=== PATIENT | female | born 1965 | race Caucasian/White ===

== ENCOUNTER 2018-01-06 10:35 | Emergency (ER) | payer OTHER ==
[2018-01-06 10:41] VITALS: BP 139/87
[2018-01-06] MEDS ORDERED: CLINDAMYCIN HCL 150 MG CAPSULE PO ONE (10:54)
--- NOTE | 2018-01-06 10:55 | ER Document Report ---
ED Skin Rash/Insect Bite/Abscs - General Chief Complaint: Insect Bite Stated Complaint: SPIDER BITE Time Seen by Provider: 01/06/18 10:42 Mode of Arrival: Ambulatory Information source: Patient Notes: Chief complaint: Insect bite History of complain:( obtained from----patient) 52 years old female presents today with an insect bite in the right hand 2 days ago noted some redness and swelling pain therefore present to the ED. No fever chills or other constitutional symptoms. The redness is extending. Onset: As above Duration: As above Severity: Mild to moderate Quality: Sharp Context: Insect bite possibly spider Exacerbating factor and relieving factors: Movement of the wrist REVIEW OF SYSTEMS: CONSTITUTIONAL : Denies fever, chills, or sweats. Denies recent illness. EENT: Denies eye, ear, throat, or mouth pain or symptoms. Denies nasal or sinus congestion or discharge. Denies throat, tongue, or mouth swelling or difficulty swallowing. CARDIOVASCULAR: Denies chest pain. Denies palpitations or racing or irregular heart beat. Denies ankle edema. RESPIRATORY: Denies cough, cold, or chest congestion. Denies shortness of breath, difficulty breathing, or wheezing. GASTROINTESTINAL: Denies distention. Denies nausea, vomiting, or diarrhea. Denies blood in vomitus, stools, or per rectum. Denies black, tarry stools. Denies constipation. GENITOURINARY: Denies difficulty urinating, painful urination, burning, frequency, blood in urine, or discharge. FEMALE GENITOURINARY: Denies vaginal bleeding, heavy or abnormal periods, irregular periods. Denies vaginal discharge or odor. MUSCULOSKELETAL: Denies back or neck pain or stiffness. Denies joint pain or swelling. SKIN: Denies rash, lesions or sores. HEMATOLOGIC : Denies easy bruising or bleeding. LYMPHATIC: Denies swollen, enlarged glands. NEUROLOGICAL: Denies confusion or altered mental status. Denies passing out or loss of consciousness. Denies dizziness or lightheadedness. Denies headache. Denies weakness or paralysis or loss of use of either side. Denies problems with gait or speech. Denies sensory loss, numbness, or tingling. Denies seizures. PSYCHIATRIC: Denies anxiety or stress. Denies depression, suicidal ideation, or homicidal ideation. ALL OTHER SYSTEMS REVIEWED AND NEGATIVE. PHYSICAL EXAMINATION: GENERAL: Well-appearing, well-nourished and in no acute distress. HEAD: Atraumatic, normocephalic. EYES: Pupils equal round and reactive to light, extraocular movements intact, conjunctiva are normal. ENT: Nares patent, oropharynx clear without exudates. Moist mucous membranes. NECK: Normal range of motion, supple without lymphadenopathy LUNGS: Breath sounds clear to auscultation bilaterally and equal. No wheezes rales or rhonchi. HEART: Regular rate and rhythm without murmurs ABDOMEN: Soft, nontender, nondistended abdomen. No guarding, no rebound. No masses appreciated. Examination of genitals-deferred Musculoskeletal: Normal range of motion, no pitting or edema. No cyanosis. NEUROLOGICAL: Cranial nerves grossly intact. Normal speech, normal gait. Normal sensory, motor exams PSYCH: Normal mood, normal affect. SKIN: Skin over the right hand at the middle of the extensor surface papule was noted which is yellow in discoloration. Surrounded by erythema which is tender. No significant swelling noted. Dictation was performed using [employer] voice recognition software TRAVEL OUTSIDE OF THE [place] IN LAST 30 DAYS: No - HPI Notes: Dictated - Related Data Allergies/Adverse Reactions: Penicillins Allergy (Verified 01/06/18 10:36) Past Medical History - Social History Smoking Status: Never Smoker Chew tobacco use (# tins/day): No Frequency of alcohol use: Occasional Drug Abuse: None Lives with: Family Family History: Reviewed & Not Pertinent Patient has suicidal ideation: No Patient has homicidal ideation: No - Past Medical History Cardiac Medical History: Reports: Hx Hypertension Renal/ Medical History: Denies: Hx Peritoneal Dialysis Review of Systems - Review of Systems Notes: Dictated Physical Exam - Vital signs Vitals: Temp Pulse Resp BP Pulse Ox 98.1 F 118 H 16 139/87 H 100 01/06/18 10:40 01/06/18 10:40 01/06/18 10:40 01/06/18 10:40 01/06/18 10:40 - Notes Notes: Dictated Course - Re-evaluation Re-evalutation: 01/06/18 10:52 The posterior was disrupted and culture obtained 01/06/18 10:52 Given antibiotic - Vital Signs Vital signs: Temp Pulse Resp BP Pulse Ox 98.1 F 118 H 16 139/87 H 100 01/06/18 10:40 01/06/18 10:40 01/06/18 10:40 01/06/18 10:40 01/06/18 10:40 Discharge - Discharge Clinical Impression: Cellulitis and abscess of hand Insect bite Qualifiers: Encounter type: initial encounter Site of insect bite: hand Laterality: right Qualified Code(s): S60.561A - Insect bite (nonvenomous) of right hand, initial encounter; W57.XXXA - Bitten or stung by nonvenomous insect and other nonvenomous arthropods, initial encounter; W57.XXXA - Bitten or stung by nonvenomous insect and other nonvenomous arthropods, initial encounter Condition: Fair Disposition: HOME, SELF-CARE Instructions: Abscess ([facility]) Additional Instructions: Insect Bites You have been bitten by an insect. These bites can cause two types of swelling: an initial swelling due to insect saliva or injected poison, and a late reaction due to your body's allergic reaction. This initial local reaction may be uncomfortable but is not dangerous. Often there's an itchy "hive" at the bite location. This is treated with antihistamines, cold compresses, and resting the affected body part. The later reaction often develops about the second day. The entire area becomes very swollen, red, itchy, and tender. This is an allergic reaction. Your body is attacking the leftover insect saliva or venom. This type of allergy is unpleasant, but not dangerous. We treat this swelling with cortisone -type medicine. Sometimes we use antibiotics if we're worried about infection. Antihistamines help with the itch. If you develop a fever, chills, a red streak, or swollen glands in the area of the bite, infection may be starting. Return at once. Prescriptions: Clindamycin HCl 300 mg PO QID #40 capsule
== END 2018-01-06 11:14 | disposition home or self-care (01) ==
LOC: ER 10:35
DX: S60.561A Insect bite (nonvenomous) of right hand, initial encounter (principal); W57.XXXA Bitten or stung by nonvenomous insect and other nonvenomous arthropods, initial encounter; L03.119 Cellulitis of unspecified part of limb; L02.519 Cutaneous abscess of unspecified hand; I10 Essential (primary) hypertension; Z88.0 Allergy status to penicillin
CPT/HCPCS: 87070; 87077; 87186; 87205; 99282

== ENCOUNTER 2020-01-16 21:21 | Emergency (ER) | payer OTHER ==
[2020-01-16 21:31] VITALS: BP 100/48
--- NOTE | 2020-01-16 22:44 | ER Document Report ---
ED Medical Screen (RME) - General Chief Complaint: Shortness Of Breath Stated Complaint: FEVER/COUGHING/SHORTNESS OF BREATH Time Seen by Provider: 01/16/20 22:37 TRAVEL OUTSIDE OF THE [place] IN LAST 30 DAYS: No - HPI Notes: 01/16/20 22:42 54-year-old female with past medical history for hypertension to the emergency department with complaints of to 3 days of body aches, headache, sore throat, cough, nausea, vomiting, chills. She is not really sure if she has had a fever. Denies loss of taste or smell. She admits that she has been out shopping at [employer] but not really in any other environment where there are a lot of people. She did not have at all to family and for the holiday. She is not sure that she has been exposed to any Covid positive people. She states for the past 2 days she has been in bed because she feels so badly. She states that she feels overall weak. She states her sore throat is her worst symptom. She also states that she feels short of breath. Brief medical screening exam reveals middle- aged woman who looks overall weak. She has no adventitious breath sounds. Although, her effort is weak. She has mildly erythematous throat. Noted vital signs with a little bit of a soft blood pressure. She does take atenolol and her last dose was this morning. She does have dry mucous membranes. I performed a brief medical screening exam on the patient determined that the patient needs further evaluation and management by main side provider. I have placed initial orders to help expedite care. - Related Data Allergies/Adverse Reactions: Penicillins Allergy (Verified 01/16/20 22:37) Past Medical History - Past Medical History Cardiac Medical History: Reports: Hx Hypertension Renal/ Medical History: Denies: Hx Peritoneal Dialysis Physical Exam - Vital signs Vitals: Temp Pulse Resp BP Pulse Ox 99.3 F 101 H 20 100/48 L 97 01/16/20 21:29 01/16/20 21:29 01/16/20 21:29 01/16/20 21:29 01/16/20 21:29 Course - Vital Signs Vital signs: Temp Pulse Resp BP Pulse Ox 99.3 F 101 H 20 100/48 L 97 01/16/20 21:29 01/16/20 21:29 01/16/20 21:29 01/16/20 21:29 01/16/20 21:29
--- NOTE | 2020-01-16 23:00 | ER Document Report ---
ED General Pain - General Chief Complaint: Pain All Over Stated Complaint: FEVER/COUGHING/SHORTNESS OF BREATH Time Seen by Provider: 01/16/20 22:37 Primary Care Provider: VALERIE GARY PA-C [Primary Care Provider] - Follow up as needed Mode of Arrival: Ambulatory Information source: Patient Notes: 01/16/20 22:39 - ED Nursing Note by SHI LORD [facility] Num: [id number] : 1965 Patient Age: [age] Y/O FEMALE, PRESENTS WITH GENERALIZED BODY ACHES, SORE SHORT, OCCASIONAL SOB, CHILLS. REPORTS THAT SHE WENT SHOPPING LAST WEEKEND. DENIES FEVERS, LOSS OF TASTE OR SMELL. PA IN TO ASSESS. Initialized on 01/16/20 22:39 - END OF NOTE ED Medical Screen (Pamela Jeong) - General Chief Complaint: Shortness Of Breath Stated Complaint: FEVER/COUGHING/SHORTNESS OF BREATH Time Seen by Provider: 01/16/20 22:37 TRAVEL OUTSIDE OF THE [place] IN LAST 30 DAYS: No - HPI Notes: 01/16/20 22:42 54-year-old female with past medical history for hypertension to the emergency department with complaints of to 3 days of body aches, headache, sore throat, cough, nausea, vomiting, chills. She is not really sure if she has had a fever. Denies loss of taste or smell. She admits that she has been out shopping at [facility] but not really in any other environment where there are a lot of people. She did not have at all to family and for the holiday. She is not sure that she has been exposed to any Covid positive people. She states for the past 2 days she has been in bed because she feels so badly. She states that she feels overall weak. She states her sore throat is her worst symptom. She also states that she feels short of breath. Brief medical screening exam reveals middle- aged woman who looks overall weak. She has no adventitious breath sounds. Although, her effort is weak. She has mildly erythematous throat. Noted vital signs with a little bit of a soft blood pressure. She does take atenolol and her last dose was this morning. She does have dry mucous membranes. I performed a brief medical screening exam on the patient determined that the patient needs further evaluation and management by main side provider. I have placed initial orders to help expedite care. MY NOTES 54-year-old female arrives with 3 days of diarrhea and abdominal pain with poor p.o. intake because of sore throat headache myalgias rhinorrhea productive yellow phlegm cough and mild fevers. She denies being around anyone with COVID-19. Patient denies any hemoptysis. Her mouth is quite dry with dry mucous and dry lips and tongue. She is tachycardic upon my exam despite taking atenolol and the morning dose today. She also admits to some mild delirium. She denies any black tarry stools any abuse any spider bites animal bites mosquito bites travel to foreign countries. She also denies any abuse at home. She denies any prior history of pneumonias. She is allergic to penicillin. TRAVEL OUTSIDE OF THE [place] IN LAST 30 DAYS: No - HPI Onset: Other - x 3-4 days Quality of pain: Achy Severity: Mild Pain Level: 1 Context: New onset Associated symptoms: Fever Exacerbated by: Coughing Similar symptoms previously: No Recently seen / treated by doctor: No - Related Data Allergies/Adverse Reactions: Penicillins Allergy (Verified 01/16/20 22:37) Past Medical History - General Information source: Patient - Social History Smoking Status: Never Smoker Cigarette use (# per day): No Chew tobacco use (# tins/day): No Smoking Education Provided: No Frequency of alcohol use: Occasional Drug Abuse: None Lives with: Family Family History: Reviewed & Not Pertinent Patient has suicidal ideation: No Patient has homicidal ideation: No - Past Medical History Cardiac Medical History: Reports: Hx Hypertension Renal/ Medical History: Denies: Hx Peritoneal Dialysis Review of Systems - Review of Systems Constitutional: See HPI, Recent illness EENT: See HPI, Throat pain Cardiovascular: See HPI, Heart racing Respiratory: No symptoms reported Gastrointestinal: See HPI, Abdominal pain, Diarrhea Genitourinary: No symptoms reported Female Genitourinary: No symptoms reported Musculoskeletal: No symptoms reported Skin: No symptoms reported Hematologic/Lymphatic: No symptoms reported Neurological/Psychological: See HPI, Weakness Physical Exam - Vital signs Vitals: Temp Pulse Resp BP Pulse Ox 99.3 F 101 H 20 100/48 L 97 01/16/20 21:29 01/16/20 21:29 01/16/20 21:29 01/16/20 21:29 01/16/20 21:29 Interpretation: Hypotensive, Tachycardic - General General appearance: Appears well, Alert - HEENT Head: Normocephalic, Atraumatic Eyes: Normal Pupils: PERRL - Respiratory Respiratory status: No respiratory distress Chest status: Nontender Breath sounds: Normal Chest palpation: Normal - Cardiovascular Rhythm: Tachycardia Heart sounds: Normal auscultation Murmur: No - Abdominal Inspection: Normal Distension: No distension Bowel sounds: Hypoactive Tenderness: Nontender Organomegaly: No organomegaly - Rectal Hemorrhoids: Other - deferred - Genitourinary Bimanuel exam: Other - deferred - Back Back: Normal, Nontender - Extremities General upper extremity: Normal inspection, Nontender, Normal color, Normal ROM, Normal temperature General lower extremity: Normal inspection, Nontender, Normal color, Normal ROM, Normal temperature, Normal weight bearing. No: Cinthia's sign - Neurological Neuro grossly intact: Yes Cognition: Normal Orientation: AAOx4 Henriette Coma Scale Eye Opening: Spontaneous Kwadwo Coma Scale Verbal: Oriented Kwadwo Coma Scale Motor: Obeys Commands Henriette Coma Scale Total: 15 Speech: Normal Motor strength normal: LUE, RUE, LLE, RLE Sensory: Normal - Psychological Associated symptoms: Flat affect - Skin Skin Temperature: Warm Skin Moisture: Dry Skin Color: Normal Course - Vital Signs Vital signs: Temp Pulse Resp BP Pulse Ox 99.3 F 101 H 20 100/48 L 97 01/16/20 21:29 01/16/20 21:29 01/16/20 21:29 01/16/20 21:29 01/16/20 21:29 - Laboratory Result Diagrams: 01/16/20 23:35 01/16/20 23:35 Laboratory results interpreted by me: 01/16/20 01/16/20 23:35 23:35 WBC 11.1 H Hgb 10.0 L Hct 29.8 L MCV 78 L MCH 26.2 L Lymph % (Auto) 10.1 L Smyth % (Auto) 14.0 H Absolute Neuts (auto) 8.3 H Absolute Monos (auto) 1.5 H Sodium 134.0 L Potassium 3.4 L Glucose 130 H Total Protein 5.9 L - Diagnostic Test Radiology reviewed: Reports reviewed Critical Care Note - Critical Care Note Comments: Advised patient of her labs and x-ray findings. I advised her to stay in quarantine until her COVID-19 test returns probably within 48 hours. I also advised her to take Tylenol or Motrin for fever or chills. Discharge - Discharge Clinical Impression: Viral syndrome, COVID-19 virus RNA test result unknown, Dehydration Condition: Stable Disposition: HOME, SELF-CARE Additional Instructions: Follow-up with personal doctor this week by telephone. Stay quarantined until your coronavirus returns. Your symptoms and labs and chest x-ray indicate you do have a viral type pattern. Encourage fluids take medicines as directed and return to ER as needed. Prescriptions: Dexamethasone [Decadron 4 Mg Tablet] 4 mg PO DAILY #5 tablet Famotidine [Pepcid 20 mg Tablet] 20 mg PO BID #12 tablet Azithromycin [Zithromax 250 mg Tablet] 250 mg PO ASDIR PRN #6 tablet PRN Reason: Referrals: VALERIE GARY PA-C [Primary Care Provider] - Follow up as needed
[2020-01-16 23:59] LABS: ABSOLUTE EOSINOPHILS # (AUTO) 0.1 10^3/uL (0.0-0.6); ABSOLUTE LYMPHOCYTES (AUTO) 1.1 10^3/uL (0.5-4.7); ABSOLUTE MONOCYTES (AUTO) 1.5 10^3/uL (0.1-1.4); ABSOLUTE NEUT (AUTO) 8.3 10^3/uL (1.7-8.2); BASOPHILS % (AUTO) 0.1 % (0-2); EOSINOPHILS % (AUTO) 0.6 % (0-6); HEMATOCRIT 29.8 % (36.0-47.0); LYMPHOCYTES % (AUTO) 10.1 % (13-45); MEAN CORPUSCULAR HEMOGLOBIN 26.2 pg (27.0-33.4); MEAN CORPUSCULAR HGB CONC 33.5 g/dL (32.0-36.0); MEAN CORPUSCULAR VOLUME 78 fl (80-97); PLATELET COUNT 204 10^3/uL (150-450); RED BLOOD COUNT 3.81 10^6/uL (3.72-5.28); RED CELL DISTRIBUTION WIDTH 13.9 % (11.5-14.0); SEGMENTED NEUTROPHILS % (AUTO) 75.2 % (42-78); TOTAL CELLS COUNTED % (AUTO) 100 %; WHITE BLOOD COUNT 11.1 10^3/uL (4.0-10.5)
[2020-01-17 00:16] LABS: ALBUMIN 3.5 g/dL (3.5-5.0); ALKALINE PHOSPHATASE 81 U/L (38-126); ANION GAP 6 (5-19); ASPARTATE AMINO TRANSFERASE 18 U/L (14-36); BLOOD UREA NITROGEN 12 mg/dL (7-20); CALCIUM 9.6 mg/dL (8.4-10.2); CARBON DIOXIDE 28 mmol/L (22-30); CHLORIDE 100 mmol/L (98-107); GLUCOSE 130 mg/dL (75-110); POTASSIUM 3.4 mmol/L (3.6-5.0); TOTAL PROTEIN 5.9 g/dL (6.3-8.2)
[2020-01-17 00:24] LABS: A TYPE INFLUENZA AG NEGATIVE (NEGATIVE); B INFLUENZA AG NEGATIVE (NEGATIVE)
[2020-01-17] MEDS ORDERED: AZITHROMYCIN INJ 500 MG VIAL IV ONE (00:44)
[2020-01-17] MEDS ORDERED: DEXAMETHASONE SOD PHOS INJ 10 MG/1 ML VIAL IV ONE (00:44)
[2020-01-17] MEDS ORDERED: FAMOTIDINE INJ/PF 20 MG/2 ML SDV IV ONE (00:45)
[2020-01-17] MEDS ORDERED: NORMAL SALINE 1000 ML 1,000 ML IV ONE (00:45)
[2020-01-17] MEDS ORDERED: DEXAMETHASONE SOD PHOSPHATE INJ 4 MG/1 ML VIAL ONE (01:04)
[2020-01-17] MEDS ORDERED: ONDANSETRON ODT 4 MG TAB (6 TAB/ER DISP) PO PRN (01:25)
--- NOTE | 2020-01-17 01:58 | RADIOLOGY REPORT (SQ) ---
EXAM: XR Chest, 1 View EXAM DATE/TIME: 01/17/2020 12:28 AM CLINICAL HISTORY: The patient is 54 years old and is Female; fever TECHNIQUE: Frontal view of the chest. COMPARISON: No relevant prior studies available. FINDINGS: LUNGS: Unremarkable. No consolidation. PLEURAL SPACE: Unremarkable. No pneumothorax. HEART: No significant enlargement of the cardiac silhouette. MEDIASTINUM: Unremarkable. BONES/JOINTS: No acute osseous findings. IMPRESSION: No acute findings visualized in the chest.
== END 2020-01-17 02:57 | disposition home or self-care (01) ==
LOC: ER 21:21
DX: B34.9 Viral infection, unspecified (principal); E86.0 Dehydration; R51.9 Headache, unspecified; J02.9 Acute pharyngitis, unspecified; R05 Cough; R11.2 Nausea with vomiting, unspecified; R68.83 Chills (without fever); R06.02 Shortness of breath; R19.7 Diarrhea, unspecified; R10.9 Unspecified abdominal pain; M79.10 Myalgia, unspecified site; R00.0 Tachycardia, unspecified; R41.0 Disorientation, unspecified; R53.1 Weakness; J34.89 Other specified disorders of nose and nasal sinuses; I10 Essential (primary) hypertension; Z79.899 Other long term (current) drug therapy; Z88.0 Allergy status to penicillin; Z20.828 Contact with and (suspected) exposure to other viral communicable diseases
CPT/HCPCS: 99284; 96361; 96375; 96365; 36415; 87040; 87070; 87880; 83605; 85025; 87635; 87077; 80053; 87804; 71045; J7030; J0456; S0028; J1100; C9803